=== PATIENT | female | born 1970 | race Caucasian/White ===

== ENCOUNTER 2021-05-19 09:34 | Inpatient (IN) | payer MEDICAID ==
[~2021-05-19] VITALS: Ht 154.9 cm; Wt 48.4 kg
[2021-05-19 09:49] VITALS: BP 107/70
[2021-05-19 10:44] LABS: ABSOLUTE BASOPHILS 0.1 thou/uL (0.0-0.2); ABSOLUTE LYMPHOCYTES 1.6 thou/uL (0.8-5.3); ABSOLUTE MONOCYTES 0.8 thou/uL (0.0-1.2); ABSOLUTE NEUTROPHILS 6.8 thou/uL (1.6-8.1); BASOPHILS 0.7 %; EOSINOPHILS 0.3 %; HEMATOCRIT 40.2 % (37.0-47.0); HEMOGLOBIN 13.2 gm/dL (12.0-15.0); MCH 29.8 pg (26.0-34.0); MCV 90.4 fL (80.0-100.0); MONOCYTES 8.7 %; MPV 8.9 fl. (7.2-11.1); NUCLEATED RBCS 0 /100WBC; PLATELET COUNT* 223 thou/uL (150-400); POLYS 73.3 %; RBC 4.44 mil/uL (4.20-5.00); RDW-CV 14.4 % (10.5-14.5); WBC 9.3 thou/uL (4.0-11.0)
[2021-05-19] MEDS ORDERED: ABILIFY 2 MG2 M1 PO (10:50)
[2021-05-19] MEDS ORDERED: FUROSEMIDE 20 M20 MG PO (10:51)
[2021-05-19] MEDS ORDERED: MELATONIN10 M3 PO (10:51)
[2021-05-19] MEDS ORDERED: VITAMIN B125000 MCG PO (10:51)
[2021-05-19] MEDS ORDERED: JANTOVEN3 MG PO (10:52)
[2021-05-19] MEDS ORDERED: TRAZODONE HCL100 MG PO (10:52)
[2021-05-19] MEDS ORDERED: EUTHYROX75 MCG PO (10:52)
[2021-05-19] MEDS ORDERED: TOPROL XL25 MG PO (10:53)
[2021-05-19] MEDS ORDERED: ASA81BEC PO (10:53)
[2021-05-19 10:55] LABS: CALCIUM 8.9 mg/dL (8.5-10.1); CREATININE 1.1 mg/dL (0.6-1.3); POTASSIUM 3.8 mmol/L (3.5-5.1)
[2021-05-19 11:00] LABS: ALBUMIN 3.7 g/dL (3.4-5.0); TOTAL BILIRUBIN 0.3 mg/dL (<0.1-1.0); TOTAL PROTEIN 7.6 g/dL (6.4-8.2)
[2021-05-19 11:18] LABS: URINE BILIRUBIN NEGATIVE (Negative); URINE BLOOD 3+ (Negative); URINE CLARITY CLEAR; URINE COLOR YELLOW; URINE GLUCOSE-RANDOM NEGATIVE (Negative); URINE KETONES NEGATIVE (Negative); URINE LEUKOCYTES-REFLEX NEGATIVE (Negative); URINE NITRITE-REFLEX NEGATIVE (Negative); URINE PROTEIN 1+ (Negative); URINE SPECIFIC GRAVITY >= 1.030 (1.005-1.030); URINE UROBILINOGEN 0.2 E.U./dl (0.2-1.0)
[2021-05-19 11:24] LABS: BACTERIA-REFLEX 1-9 Few /HPF (None Seen); CASTS None Seen /LPF (None Seen); CRYSTALS None Seen /LPF (None Seen); SQUAMOUS 0-3 Few /LPF (0-3); URINE RBC 3-10 Few /HPF (0-2); URINE WBC-REFLEX 0-5 Rare /HPF (0-5)
[2021-05-19 12:03] LABS: APTT 50.2 Seconds (25.0-31.3); INR 3.2; PROTIME 31.6 Seconds (9.20-11.50)
--- NOTE | 2021-05-19 17:10 | EKG ---
[place] [address] ELECTROCARDIOGRAM REPORT Name: JASON FLORES Room: [place] [address] ADM IN [facility].#: [id number] Admission: 05/19/21 Attend Phys: Carlito Wharton, Discharge: Date of : 66 Date of Service: 05/19/21 1043 Report #: [id number] THIS REPORT FOR: //name// [facility] ED Test Date: 2021-05-19 Test Time: 10:43:06 Pat Name: JASON FLORES Department: Room: [facility] Gender: F [employer]otive T[employer] Tester: SCOTTIE : 1970 Requested By: Pierre Fitch Order Number: [id number] MD: Jesús Dooley Measurements Intervals [place] Rate: 76 P: 68 OH: 206 QRS: 32 QRSD: 77 T: 72 QT: 405 QTc: 456 Interpretive Statements Sinus rhythm Borderline prolonged OH interval Left atrial enlargement Anteroseptal infarct, old possible No previous ECG available for comparison Electronically Signed On 05-19-2021 17:09:51 CDT by Jesús Dooley [email or web address] <ELECTRONICALLY SIGNED> By: Jesús Dooley MD, [facility] 05/19/21 1709 1043 1043 Jesús Dooley MD, [facility] /EPI
[2021-05-19 23:13] VITALS: BP 100/57
[2021-05-19 23:48] VITALS: BP 100/57
[2021-05-20 00:30] VITALS: BP 99/71
[2021-05-20 03:23] VITALS: BP 90/55
[2021-05-20 03:29] LABS: ABSOLUTE BASOPHILS 0.1 thou/uL (0.0-0.2); ABSOLUTE EOSINOPHILS 0.1 thou/uL (0.0-0.7); ABSOLUTE LYMPHOCYTES 1.7 thou/uL (0.8-5.3); ABSOLUTE MONOCYTES 0.6 thou/uL (0.0-1.2); ABSOLUTE NEUTROPHILS 3.1 thou/uL (1.6-8.1); BASOPHILS 1.1 %; EOSINOPHILS 2.6 %; HEMATOCRIT 36.3 % (37.0-47.0); HEMOGLOBIN 11.8 gm/dL (12.0-15.0); MCH 29.7 pg (26.0-34.0); MCHC 32.6 g/dL (28.0-37.0); MONOCYTES 10.7 %; MPV 8.8 fl. (7.2-11.1); NUCLEATED RBCS 0 /100WBC; PLATELET COUNT* 187 thou/uL (150-400); POLYS 55.6 %; RBC 3.99 mil/uL (4.20-5.00); RDW-CV 14.1 % (10.5-14.5); WBC 5.6 thou/uL (4.0-11.0)
[2021-05-20 03:38] LABS: CALCIUM 8.4 mg/dL (8.5-10.1); CREATININE 1.1 mg/dL (0.6-1.3); POTASSIUM 4.1 mmol/L (3.5-5.1)
[2021-05-20 07:45] VITALS: BP 96/55
[2021-05-20 07:57] LABS: INR 2.7; PROTIME 27.2 Seconds (9.20-11.50)
[2021-05-20 12:30] VITALS: BP 137/80
[2021-05-20 20:00] VITALS: BP 135/64
[2021-05-21 05:21] LABS: CALCIUM 8.2 mg/dL (8.5-10.1); CREATININE 1.1 mg/dL (0.6-1.3); MAGNESIUM 1.6 mg/dL (1.8-2.4); PHOSPHORUS* 3.4 mg/dL (2.5-4.9); POTASSIUM 4.1 mmol/L (3.5-5.1)
[2021-05-21 05:24] LABS: ABSOLUTE BASOPHILS 0.1 thou/uL (0.0-0.2); ABSOLUTE EOSINOPHILS 0.2 thou/uL (0.0-0.7); ABSOLUTE LYMPHOCYTES 1.2 thou/uL (0.8-5.3); ABSOLUTE MONOCYTES 0.5 thou/uL (0.0-1.2); ABSOLUTE NEUTROPHILS 4.3 thou/uL (1.6-8.1); BASOPHILS 1.3 %; EOSINOPHILS 3.7 %; HEMATOCRIT 35.8 % (37.0-47.0); HEMOGLOBIN 11.9 gm/dL (12.0-15.0); LYMPHOCYTES 19.4 %; MCH 29.8 pg (26.0-34.0); MCHC 33.3 g/dL (28.0-37.0); MCV 89.5 fL (80.0-100.0); MONOCYTES 8.2 %; MPV 9.2 fl. (7.2-11.1); NUCLEATED RBCS 0 /100WBC; PLATELET COUNT* 209 thou/uL (150-400); POLYS 67.4 %; RDW-CV 13.4 % (10.5-14.5); WBC 6.4 thou/uL (4.0-11.0)
[2021-05-21 08:00] VITALS: BP 96/51
[2021-05-21 16:00] VITALS: BP 112/57
[2021-05-21 20:00] VITALS: BP 113/38
[2021-05-21 23:39] VITALS: BP 122/67
[2021-05-22 04:55] LABS: ABSOLUTE BASOPHILS 0.1 thou/uL (0.0-0.2); ABSOLUTE EOSINOPHILS 0.3 thou/uL (0.0-0.7); ABSOLUTE LYMPHOCYTES 1.5 thou/uL (0.8-5.3); ABSOLUTE MONOCYTES 0.6 thou/uL (0.0-1.2); ABSOLUTE NEUTROPHILS 2.4 thou/uL (1.6-8.1); BASOPHILS 1.4 %; HEMATOCRIT 34.9 % (37.0-47.0); HEMOGLOBIN 11.7 gm/dL (12.0-15.0); LYMPHOCYTES 30.3 %; MCH 30.2 pg (26.0-34.0); MCHC 33.5 g/dL (28.0-37.0); MCV 90.1 fL (80.0-100.0); MONOCYTES 12.9 %; MPV 9.6 fl. (7.2-11.1); NUCLEATED RBCS 0 /100WBC; PLATELET COUNT* 199 thou/uL (150-400); POLYS 49.4 %; RBC 3.87 mil/uL (4.20-5.00); RDW-CV 13.8 % (10.5-14.5)
[2021-05-22 05:04] LABS: APTT 48.4 Seconds (25.0-31.3); INR 2.9
[2021-05-22 05:27] LABS: CALCIUM 8.3 mg/dL (8.5-10.1); CREATININE 0.9 mg/dL (0.6-1.3); MAGNESIUM 1.8 mg/dL (1.8-2.4); PHOSPHORUS* 3.2 mg/dL (2.5-4.9); POTASSIUM 3.8 mmol/L (3.5-5.1)
[2021-05-22 08:00] VITALS: BP 115/67
[2021-05-22] MEDS ORDERED: AUGMENTIN 875-1 EACH PO (08:53)
[2021-05-22 09:24] VITALS: BP 122/67
[2021-05-22 14:56] VITALS: BP 122/67
== END 2021-05-22 16:18 | disposition home or self-care (01) | DRG 395 ==
LOC: M.ERS 09:34 → M.TBA-ER 12:22 → M.2W 05-20 18:00
PROVIDERS: Family Medicine; Internal Medicine Cardiovascular Disease; Nurse Practitioner Adult Health; Student in an Organized Health Care Education/Training Program; Surgery; ADMIT Internal Medicine; ATTEND Internal Medicine
DX: K35.80 Unspecified acute appendicitis (principal); K52.9 Noninfective gastroenteritis and colitis, unspecified; Z20.822 Contact with and (suspected) exposure to COVID-19; Z79.01 Long term (current) use of anticoagulants; Z79.899 Other long term (current) drug therapy; Z95.4 Presence of other heart-valve replacement

== ENCOUNTER 2021-06-12 19:15 | Emergency (ER) | payer MEDICAID ==
[~2021-06-12] VITALS: Ht 154.9 cm; Wt 43.1 kg
[~2021-06-12 19:15] MED LIST: ABILIFY 2 MG2 M1 PO; ASA81BEC PO; AUGMENTIN 875-1 EACH PO; EUTHYROX75 MCG PO; FUROSEMIDE 20 M20 MG PO; JANTOVEN3 MG PO; MELATONIN10 M3 PO; TOPROL XL25 MG PO; TRAZODONE HCL100 MG PO; VITAMIN B125000 MCG PO
[2021-06-12 20:19] LABS: URINE BILIRUBIN NEGATIVE (Negative); URINE BLOOD 3+ (Negative); URINE CLARITY CLOUDY; URINE COLOR RED; URINE GLUCOSE-RANDOM NEGATIVE (Negative); URINE KETONES TRACE (Negative); URINE LEUKOCYTES-REFLEX 1+ (Negative); URINE PROTEIN 3+ (Negative)
[2021-06-12 20:21] LABS: URINE NITRITE-REFLEX POSITIVE (Negative)
[2021-06-12 20:22] LABS: SQUAMOUS 0-3 Few /LPF (0-3); URINE RBC >20 Many /HPF (0-2); URINE WBC-REFLEX 0-5 Rare /HPF (0-5)
[2021-06-12 20:23] LABS: CASTS None Seen /LPF (None Seen); CRYSTALS None Seen /LPF (None Seen)
[2021-06-12 20:27] LABS: AMP/METHAMP Negative (Negative); BARBITURATES Negative (Negative); BENZODIAZEPINES Negative (Negative); COCAINE Negative (Negative); METHADONE Negative (Negative); OPIATES Negative (Negative); PCP Negative (Negative); THC POSITIVE (Negative)
[2021-06-12] MEDS ORDERED: MACROBID 100 M100 M1 PO (20:39)
[2021-06-12 20:58] VITALS: BP 110/70
== END 2021-06-12 20:59 | disposition home or self-care (01) ==
LOC: M.ERS 19:15
PROVIDERS: Emergency Medicine
DX: N39.0 Urinary tract infection, site not specified (principal); R31.9 Hematuria, unspecified; Z79.82 Long term (current) use of aspirin; Z79.899 Other long term (current) drug therapy

== ENCOUNTER 2021-09-27 12:21 | Inpatient (IN) | payer MEDICAID ==
[~2021-09-27] VITALS: Ht 154.9 cm; Wt 42.6 kg
[~2021-09-27 12:21] MED LIST changes: +IRON325 PO; +LO-DOSE ASPIRIN81 M1 PO; +LOVENOX40 MG/0.4 SUBQ; +MACROBID 100 M100 M1 PO; +VITAMIN B-125000 MCG SUBLING; +WARFARIN SODIU7.5 MG PO
[2021-09-27 12:33] VITALS: BP 106/70
[2021-09-27] MEDS ORDERED: TOPROL XL25 MG PO (12:39)
[2021-09-27 13:51] LABS: HEMATOCRIT 41.1 % (37.0-47.0); HEMOGLOBIN 13.8 gm/dL (12.0-15.0); MCH 30.2 pg (26.0-34.0); MCHC 33.6 g/dL (28.0-37.0); MCV 89.8 fL (80.0-100.0); MPV 8.9 fl. (7.2-11.1); NUCLEATED RBCS 0 /100WBC; PLATELET COUNT* 218 thou/uL (150-400); RBC 4.57 mil/uL (4.20-5.00); RDW-CV 14.6 % (10.5-14.5); WBC 15.2 thou/uL (4.0-11.0)
[2021-09-27 13:59] LABS: URINE BILIRUBIN NEGATIVE (Negative); URINE BLOOD 3+ (Negative); URINE CLARITY CLEAR; URINE COLOR YELLOW; URINE GLUCOSE-RANDOM NEGATIVE (Negative); URINE KETONES NEGATIVE (Negative); URINE LEUKOCYTES-REFLEX NEGATIVE (Negative); URINE NITRITE-REFLEX NEGATIVE (Negative); URINE PROTEIN 1+ (Negative); URINE SPECIFIC GRAVITY 1.015 (1.005-1.030); URINE UROBILINOGEN 0.2 E.U./dl (0.2-1.0)
[2021-09-27 14:01] LABS: CREATININE 1.3 mg/dL (0.6-1.3)
[2021-09-27 14:06] LABS: ALBUMIN 3.9 g/dL (3.4-5.0); TOTAL BILIRUBIN 0.5 mg/dL (<0.1-1.0); TOTAL PROTEIN 7.4 g/dL (6.4-8.2)
[2021-09-27 14:13] LABS: BACTERIA-REFLEX None Seen /HPF (None Seen); CASTS None Seen /LPF (None Seen); CRYSTALS None Seen /LPF (None Seen); SQUAMOUS 0-3 Few /LPF (0-3); URINE WBC-REFLEX 0-5 Rare /HPF (0-5)
[2021-09-27 14:32] LABS: ABSOLUTE LYMPHOCYTES 0.6 thou/uL (0.8-5.3); ABSOLUTE MONOCYTES 0.3 thou/uL (0.0-1.2); ABSOLUTE NEUTROPHILS 14.3 thou/uL (1.6-8.1); PLATELET ESTIMATE ADEQUATE
[2021-09-27 17:08] LABS: APTT 34.7 Seconds (25.0-31.3); INR 1.2; PROTIME 12.4 Seconds (9.20-11.50)
[2021-09-27 20:00] VITALS: BP 96/56
[2021-09-28 00:13] VITALS: BP 89/50
[2021-09-28 04:25] VITALS: BP 96/47
[2021-09-28 08:25] VITALS: BP 102/47
--- NOTE | 2021-09-28 09:44 | EKG ---
[place] [address] ELECTROCARDIOGRAM REPORT Name: JASON FLORES Room: [place] [address] ADM IN [facility]#: [id number] Admission: 09/27/21 Attend Phys: Antonia Pardo, Discharge: Date of : 66 Date of Service: 09/27/21 1424 Report #: [id number] THIS REPORT FOR: //name// [facility] ED Test Date: 2021-09-27 Test Time: 14:24:54 Pat Name: JASON FLORES Department: Room: [facility] Gender: F Body Designer: LUIS : 1970 Requested By: Juan Pablo Ramos Order Number: [id number] MD: Brian Weiss Measurements Intervals [place] Rate: 76 P: 50 PA: 189 QRS: 31 QRSD: 82 T: 78 QT: 405 QTc: 456 Interpretive Statements Sinus rhythm Anterior infarct, old, Possible Compared to ECG 05/19/2021 10:43:06 No significant changes Electronically Signed On 09-28-2021 9:44:04 SAFETY CONSULTANT by Brian Weiss [email or web address] <ELECTRONICALLY SIGNED> By: Brian Weiss MD, FAC 09/28/21 0944 1424 1424 Brian Weiss MD, [facility] /EPI
[2021-09-28 09:59] LABS: APTT 38.7 Seconds (25.0-31.3); INR 1.4; PROTIME 14.1 Seconds (9.20-11.50)
[2021-09-28 10:03] LABS: ALBUMIN 3.3 g/dL (3.4-5.0); CALCIUM 8.3 mg/dL (8.5-10.1); CREATININE 1.3 mg/dL (0.6-1.3); MAGNESIUM 1.6 mg/dL (1.8-2.4); POTASSIUM 3.2 mmol/L (3.5-5.1); TOTAL BILIRUBIN 1.4 mg/dL (<0.1-1.0); TOTAL PROTEIN 6.6 g/dL (6.4-8.2)
[2021-09-28 12:25] VITALS: BP 101/52
[2021-09-28 16:25] VITALS: BP 100/53
[2021-09-28 20:18] VITALS: BP 113/54
[2021-09-29 00:30] VITALS: BP 97/49
[2021-09-29 03:40] LABS: HEMATOCRIT 35.5 % (37.0-47.0); MCH 30.4 pg (26.0-34.0); MCHC 32.9 g/dL (28.0-37.0); MCV 92.2 fL (80.0-100.0); MPV 9.2 fl. (7.2-11.1); RBC 3.85 mil/uL (4.20-5.00); RDW-CV 15.2 % (10.5-14.5); WBC 15.8 thou/uL (4.0-11.0)
[2021-09-29 04:05] LABS: APTT 41.9 Seconds (25.0-31.3); INR 1.4; PROTIME 14.5 Seconds (9.20-11.50)
[2021-09-29 04:07] LABS: HEMOGLOBIN 11.7 gm/dL (12.0-15.0)
[2021-09-29 04:09] LABS: CALCIUM 7.9 mg/dL (8.5-10.1); CREATININE 1.2 mg/dL (0.6-1.3)
[2021-09-29 04:14] LABS: POTASSIUM 4.2 mmol/L (3.5-5.1)
[2021-09-29 04:28] VITALS: BP 101/47
[2021-09-29 08:48] VITALS: BP 105/41
[2021-09-29] MEDS ORDERED: OXYCODONE HCL 55 MG PO (11:37)
--- NOTE | 2021-09-29 12:39 | OP ---
[address] [address] OPERATIVE REPORT Name: JASON FLORES [place] Room: [address] IN [facility]#: [id number] Admission: 09/27/21 Attend Phys: Antonia Pardo MD Discharge: Date of : 66 Report #: [id number] THIS REPORT FOR: cc: [facility] - [facility] physician unknown [facility] - Clinic physician unknown Tyrel Esparza III, DO ~ DATE OF SURGERY: 09/29/2021 PREOPERATIVE DIAGNOSIS: Acute appendicitis. POSTOPERATIVE DIAGNOSIS: Acute perforated appendicitis with abscess and localized peritonitis. SURGEON: Tyrel Esparza DO CO-SURGEON: Dejuan Pennington, PGY-1 SKIMMER SCOOP OPERATOR: Val Wilson, MS3. OPERATION PERFORMED: Laparoscopic appendectomy. ANESTHESIA: General and TAP block. ESTIMATED BLOOD LOSS: 30 mL. SPECIMEN: Appendix. COMPLICATIONS: None. INDICATIONS: The patient is a 51-year-old female who presented through the Emergency Department with onset of right lower quadrant pain. She had previously seen me in the office and was set up to undergo a scheduled interval appendectomy, but had recurrence of her appendicitis. She was managed as an inpatient with IV antibiotics until her appointment surgery time. She was informed of the risks and benefits of laparoscopic appendectomy with risks including but not limited to bleeding, infection, bowel injury, bladder injury, open procedure. She understood these risks and decided to proceed with surgery. DESCRIPTION OF PROCEDURE: After informed consent was obtained, the patient was brought to the operating room and placed in supine position. SCDs were on and running. Preoperative scheduled antibiotics were given. General anesthesia was administered with an ET tube. Bilateral transversus abdominis plane blocks were placed by anesthesia. The patient was prepped and draped in the usual sterile fashion. A surgical pause was held to confirm proper patient and procedure. An infraumbilical horizontal incision was made with an 11 blade. Dissection was bluntly carried down to the fascia. Fascia [place] [id number] OPERATIVE REPORT Name: JASON FLORES [place] Room: [address] IN [facility]#: [id number] Admission: 09/27/21 Attend Phys: Antonia Pardo MD Discharge: Date of : 66 Report #: [id number] elevated with two Kochers. Peritoneum was elevated with two Kellys and incised using Metzenbaum scissors. A finger was introduced through the peritoneal incision. There were no intraabdominal adhesions. 0 Vicryl stay sutures were placed in a zleurt-xl-ientk fashion at the top and bottom of the fascial incision. A 12 mm Amrik trocar was inserted through the fascia and secured. The abdomen was insufflated. Two additional 5 mm ports were placed, one in suprapubic region and one in the left lower quadrant, both under direct visualization. The patient was then positioned head down and left side down. There was obvious inflammation in the pelvis and in the right lower quadrant. Blunt dissection using a suction thread twister was used to sweep the cecum away from the abdominal wall. This revealed a small abscess that was irrigated and suctioned using the suction thread twister. This stent from the mid body of the appendix, which was perforated and had purulent material emanating from it. The appendix was traced back to the base. The cecum was identified with the appendiceal base just adjacent to the terminal ileum. The terminal ileum was healthy and noninflamed. The appendix was elevated. A [place] was used to create a window through the mesoappendix. A purple load stapler was fired across the base of the appendix. The appendix was then elevated. A combination of blunt dissection and hook cautery were used to take down the lateral attachments of the appendix so that could be elevated for further stapling. Two additional white load Endo-JONATHAN Covidien staplers were fired sequentially across the mesoappendix. The appendix was completely detached at this point, it was placed within an EndoCatch bag and placed aside. The right lower quadrant was then thoroughly irrigated and suctioned. The staple lines were inspected. The abdomen was desufflated and the staple lines remained hemostatic. The right lower quadrant was then again suctioned and irrigated and the pelvis was similarly irrigated and suctioned. The patient was repositioned supine. All trocars were removed under direct visualization. The specimen was removed through the umbilical incision. Previous stay sutures were elevated. Single qemwca-ig-gbwsw using 0 Vicryl was used to close the remaining fascia. The previous stay sutures were tied down. The umbilical incision was closed in layered fashion using 3-0 Vicryl and 4-0 Monocryl. Remainder of skin was closed using 4-0 Monocryl. Wounds were cleansed and dressed with Dermabond. All counts were correct. The patient was emerged from anesthesia and transferred to the PACU in stable condition. <ELECTRONICALLY SIGNED> By: Tyrel Esparza III, DO 09/29/21 1239 1035 [id number] Esparza III, DO /nt
--- NOTE | 2021-09-29 17:28 | NUR ---
PT TOLERATING PO INTAKE, SIPS OF WATER, CLEAR LIQUIDS AND SOME SOFT SOLID FOODS FOR DINNER. NO VOMITING WITH THIS. PAIN ADEQUATE ON PO PAIN MEDICATIONS, PER PT. PT ALERT, ORIENTED. ROOM AIR. GETS UP SBA TO BSC. PLAN D/C X1-2 DAYS
[2021-09-29 20:00] VITALS: BP 105/58
--- NOTE | 2021-09-30 04:56 | NUR ---
ASSUMED PT CARE AT 1930. PT ALERT AND ORIENTED X4. THREE LAP SITES TO ABDOMEN/UMBILICUS C/D/I WITH DERMABOND. UP AD NIKOS. IV ABX INFUSED PER ORDERS. NS @ 80 TO RIGHT A/C. HS ACCUCHECK 137. PRN PAIN MEDICATION PER PT REQUEST. MYLANTA X1 FOR INDIGESTION. NO EMESIS. STOOL X1. CALL LIGHT IN REACH. HOURLY ROUNDING IN PROGRESS, WILL CONTINUE TO MONITOR.
[2021-09-30 05:23] LABS: HEMATOCRIT 30.3 % (37.0-47.0); HEMOGLOBIN 10.4 gm/dL (12.0-15.0); MCH 31.2 pg (26.0-34.0); MCHC 34.4 g/dL (28.0-37.0); MCV 90.7 fL (80.0-100.0); MPV 9.7 fl. (7.2-11.1); RBC 3.34 mil/uL (4.20-5.00); RDW-CV 15.1 % (10.5-14.5); WBC 10.8 thou/uL (4.0-11.0)
[2021-09-30 05:38] LABS: ALBUMIN 2.2 g/dL (3.4-5.0); CALCIUM 7.8 mg/dL (8.5-10.1); CREATININE 0.9 mg/dL (0.6-1.3); POTASSIUM 4.4 mmol/L (3.5-5.1); TOTAL BILIRUBIN 0.5 mg/dL (<0.1-1.0); TOTAL PROTEIN 5.4 g/dL (6.4-8.2)
--- NOTE | 2021-09-30 09:50 | NUR ---
CM ASSESSMENT: PT A&O, INDEPENDENT WITH ADL'S, AND ACTIVE. PT USES 0 DME. PT HAS 0 HX OF HH OR SNF. NO CM D/C PLANNING NEEDS ANTICIPATED AT THIS TIME. CM WILL REMAIN AVAILABLE TO ASSIST AND FOLLOW NEEDED.
[2021-09-30 10:23] LABS: APTT 41.9 Seconds (25.0-31.3); INR 1.7; PROTIME 16.9 Seconds (9.20-11.50)
[2021-09-30] MEDS ORDERED: AUGMENTIN 875-1 EACH PO (15:07)
[2021-09-30 16:00] VITALS: BP 95/54
--- NOTE | 2021-09-30 16:24 | NUR ---
PATIENT UP AD NIKOS, VOIDING AND BM VIA BSC. IVF SL THIS AM PER ORDERS. PATIENT IV NOTED TO BE LEAKING WHEN AFTEROON ZOSYN HUNG. THIS NURSE ATTEMPTED PLACEMENT X 2 BUT UNSUCCESSFUL. SPOKE WITH DR. THOMPSON REGARDING IV STATUS, SPOKE TO SURGERY AND OK TO SWITCH IV ABX TO PO. DR. THOMPSON WAS NOTIFIED THAT NEW ABX ORDERED AND IV LEFT OUT. PATIENT REFUSED LOVENOX THIS AM, SURGERY NOTIFIED AND PATIENT IS TO TAKE LOVEOX AND WARFARIN WHILE IN HOSPITAL. NO INSULIN REQUIRED PER SCALE. PRN VICODIN GIVEN X 1 FOR ABD PAIN.
[2021-09-30 20:20] VITALS: BP 116/57
[2021-10-01 05:48] LABS: HEMATOCRIT 33.8 % (37.0-47.0); HEMOGLOBIN 11.3 gm/dL (12.0-15.0); MCH 30.3 pg (26.0-34.0); MCHC 33.5 g/dL (28.0-37.0); MCV 90.5 fL (80.0-100.0); MPV 9.5 fl. (7.2-11.1); RBC 3.74 mil/uL (4.20-5.00); RDW-CV 15.1 % (10.5-14.5); WBC 8.4 thou/uL (4.0-11.0)
[2021-10-01 05:59] LABS: INR 1.3; PROTIME 13.6 Seconds (9.20-11.50)
[2021-10-01 06:05] LABS: ALBUMIN 2.4 g/dL (3.4-5.0); POTASSIUM 3.3 mmol/L (3.5-5.1); TOTAL BILIRUBIN 0.4 mg/dL (<0.1-1.0); TOTAL PROTEIN 5.8 g/dL (6.4-8.2)
[2021-10-01 08:00] VITALS: BP 107/55
[2021-10-01 10:52] VITALS: BP 107/55
[2021-10-01] MEDS ORDERED: ENOXAPARIN40 MG/0.4 SUBQ (13:26)
--- NOTE | 2021-10-01 15:26 | NUR ---
ASSUMED PT CARE AT 0830. ASSESSMENT COMPLETED CHARTED. ABLE TO MAKE NEEDS KNOWN. UP AD NIKOS. C/O ABD PAIN AND GAVE PRN PAIN MEDICATIONS PER EMAR. D/C APPROVED BY SURG AND HOSPITALIST, WENT OVER DC WITH PT. MOTHER CAME BY TO INSTRUCTIONAL CONSULTANT PATIENT AND TOOK HER DOWN TO VEHICLE AT 1515. ALL BELONGINGS TAKEN WITH PATIENT. NO IV PRESENT.
--- NOTE | 2021-10-01 16:04 | NUR ---
PLAN FOR THE PT TO D/C TODAY HOME WITH SELF-CARE AND F/U WITH [facility] THE PT HAD BEEN DOING THIS PRIOR TO ADMIT. CM CALLED TO GET THE CLINICS FAX NUMBER TO FAX PT'S CLINICAL INFO. CM AWAITING RETURN CALL. CM WILL REMAIN AVAILABLE TO ASSIST AND FOLLOW NEEDED.
--- NOTE | 2021-10-02 13:08 | PATH ---
[address] [address] PATHOLOGY RPT PROCEDURE Name: JASON FLORES Room: [address] IN .R.#: [id number] Admission: 09/27/21 Date of : 66 Discharge: 10/01/21 Report #: [id number] Path Case #: [id number] [facility] Accession Number: [id number] . 01 Material submitted: . appendix - APPENDIX . 01 Clinical history: . LAPAROSCOPIC APPENDECTOMY APPENDICITIS PERFORATED APPENDICITIS WITH ABSCESS . 02 Diagnosis: Appendix: - Acute gangrenous appendicitis, periappendicitis, and serositis with evidence of perforation and abscess. (LAWANDA:pit; 10/01/2021) QTP 10/01/2021 1044 Local . 02 Electronically signed: . Lorenzo Hagen MD, Pathologist NPI- [id number] . 01 Gross description: . Fixative: Formalin Labeled: Appendix Perforation: Received previously partially disrupted with a 2.8 x 1.4 cm disruption Appendix size: 6.4 cm in length by 0.9 cm in diameter Mesoappendix: Minimal, dusky Proximal margin: Inked black Serosa: Keith-hunt, dusky and hemorrhagic with overlying fibrinous exudate and fine adhesions Mucosa: Keith-dusky, hemorrhagic and necrotic Luminal diameter: Ranges from <0.1 cm to 0.3 cm Wall thickness: Ranges from 0.2 cm to 0.4 cm Lesions/abnormalities: None . A1-A3: Prepress Manager sections of appendix to include the proximal margin (submitted en face) in A1 and the serially sectioned lengthwise distal tip submitted entirely in A2-A3. ([facility]; 09/30/2021) DKA/DKA 09/30/2021 1059 Local . 02 Pathologist provided ICD-10: K35.33, K65.8 . 02 CPT . [id number] [place] [address] PATHOLOGY RPT PROCEDURE Name: JASON FLORES Room: [address]#: [id number] Admission: 09/27/21 Date of : 66 Discharge: 10/01/21 Report #: [id number] Path Case #: [id number] Specimen Comment: A courtesy copy of this report has been sent to [phone], [phone] Specimen Comment: [id number] Specimen Comment: Report sent to AND DR THOMPSON Specimen Comment: A duplicate report has been generated due to demographic updates. Performed at: [address] [facility], [place], [place] [id number] MD Ronni Paz MD Phone: [phone] Performed at: [address] [facility] [address] [place], [place], [place] [id number] MD Lorenzo Hagen MD Phone: [phone]
[2021-10-02] MEDS ORDERED: ROXICODONE5 MG PO (14:29)
== END 2021-10-01 15:20 | disposition home or self-care (01) | DRG 340 ==
LOC: M.ERS 12:21 → M.TBA-ER 16:06 → M.2W 09-29 14:27
PROVIDERS: Emergency Medicine; Student in an Organized Health Care Education/Training Program; ADMIT Internal Medicine; ATTEND Internal Medicine
PROC: 0DTJ4ZZ Resection of Appendix, Percutaneous Endoscopic Approach (ICD-10-PCS; principal; 2021-09-29)
DX: K35.33 Acute appendicitis with perforation, localized peritonitis, and gangrene, with abscess (principal); F17.210 Nicotine dependence, cigarettes, uncomplicated; R73.9 Hyperglycemia, unspecified; R31.9 Hematuria, unspecified; Z20.822 Contact with and (suspected) exposure to COVID-19; Z95.2 Presence of prosthetic heart valve; Q07.00 Arnold-Chiari syndrome without spina bifida or hydrocephalus